=== PATIENT | male | born 1990 | race Hispanic/Latino ===

== ENCOUNTER 2021-05-06 10:42 | Emergency (ER) | payer OTHER ==
[~2021-05-06] VITALS: Ht 175.3 cm; Wt 82.4 kg
--- NOTE | 2021-05-06 12:15 | REP ---
INDICATION: trauma COMPARISON: None. TECHNIQUE: There are four views FINDINGS: There is no fracture or dislocation. Mineralization and joint spaces are normal. There are no calcifications or foreign bodies. IMPRESSION: Essentially negative left ankle. <Electronically signed by Daljit Benitez > 05/06/21 [id number]
[2021-05-06] MEDS ORDERED: IBUPROFEN 800 MG TAB PO ONE (12:30)
--- NOTE | 2021-05-06 12:54 | REP ---
INDICATION: TRAUMATIC PROXIMAL FOOT PAIN R/O FX TARSALS, METATARSALS. COMPARISON: None. TECHNIQUE: Four views FINDINGS: The joint spaces are symmetric and relatively well maintained. There is no evidence of acute fracture or destructive osseous lesion. IMPRESSION: Negative. <Electronically signed by Sharath Haines > 05/06/21 [id number]
[2021-05-06] MEDS ORDERED: ACETAMINOPHEN 500 MG TAB PO ONE (13:40)
[2021-05-06 13:47] VITALS: BP 127/80
== END 2021-05-06 14:10 | disposition home or self-care (01) ==
LOC: M ED 10:42
DX: M25.572 Pain in left ankle and joints of left foot (principal)

== ENCOUNTER 2021-12-25 21:56 | Emergency (ER) | payer OTHER ==
[~2021-12-25] VITALS: Ht 175.3 cm; Wt 79.5 kg
[2021-12-25 21:57] VITALS: BP 150/90
== END 2021-12-26 01:51 | disposition home or self-care (01) ==
LOC: M ED 21:56
DX: S60.131A Contusion of right middle finger with damage to nail, initial encounter (principal); X58.XXXA Exposure to other specified factors, initial encounter; Y92.89 Other specified places as the place of occurrence of the external cause; Y93.9 Activity, unspecified; Y99.1 Military activity; F17.290 Nicotine dependence, other tobacco product, uncomplicated

== ENCOUNTER 2022-01-21 12:20 | Emergency (ER) | payer OTHER ==
[~2022-01-21] VITALS: Ht 175.3 cm; Wt 81.8 kg
[2022-01-21 12:22] VITALS: BP 134/87
[2022-01-21] MEDS ORDERED: HYDR50TA70 PO (13:37)
== END 2022-01-21 14:08 | disposition home or self-care (01) ==
LOC: M ED 12:20
DX: G47.9 Sleep disorder, unspecified (principal); F17.290 Nicotine dependence, other tobacco product, uncomplicated

== ENCOUNTER 2022-02-03 11:00 | Emergency (ER) | payer OTHER ==
[~2022-02-03] VITALS: Ht 175.3 cm; Wt 81.8 kg
[2022-02-03 11:00] VITALS: BP 136/89
[~2022-02-03 11:00] MED LIST: HYDR50TA70 PO
[2022-02-03] MEDS ORDERED: MELO7.5T35 (11:20)
[2022-02-03] MEDS ORDERED: IBUPROFEN 800 MG TAB PO ONE (12:55)
[2022-02-03] MEDS ORDERED: IBUP80TA PO (13:06)
[2022-02-03] MEDS ORDERED: NORCO, ANEXSIA 5/325MG TABLET (HYDROcodone/ACETAMINOPHEN) PO ONE (13:35)
[2022-02-03] MEDS ORDERED: HYDR-3713 PO (13:36)
== END 2022-02-03 13:55 | disposition home or self-care (01) ==
LOC: M ED 11:00
DX: S46.912A Strain of unspecified muscle, fascia and tendon at shoulder and upper arm level, left arm, initial encounter (principal); X58.XXXA Exposure to other specified factors, initial encounter; Y92.89 Other specified places as the place of occurrence of the external cause; Y93.89 Activity, other specified; Y99.1 Military activity; M25.712 Osteophyte, left shoulder

== ENCOUNTER 2023-01-09 17:59 | Emergency (ER) | payer OTHER ==
[~2023-01-09] VITALS: Ht 175.3 cm; Wt 88.6 kg
[~2023-01-09 17:59] MED LIST changes: +HYDR-3713 PO; +IBUP80TA PO; +MELO7.5T35
[2023-01-09 18:00] VITALS: BP 130/86
[2023-01-09] MEDS ORDERED: CYCL-707 (18:12)
[2023-01-09] MEDS ORDERED: BACT800T5 PO (18:43)
== END 2023-01-09 19:02 | disposition home or self-care (01) ==
LOC: M ED 17:59
DX: L72.0 Epidermal cyst (principal); F17.290 Nicotine dependence, other tobacco product, uncomplicated; Z79.899 Other long term (current) drug therapy

== ENCOUNTER 2024-02-18 12:31 | Emergency (ER) | payer OTHER ==
[~2024-02-18] VITALS: Ht 175.3 cm; Wt 84.1 kg
[~2024-02-18 12:31] MED LIST changes: +BACT800T5 PO; +CYCL-707
[2024-02-18 18:40] VITALS: BP 147/97; TEMP 97; O2SAT 100
== END 2024-02-18 18:42 | disposition home or self-care (01) ==
LOC: M ED 12:31
DX: N62 Hypertrophy of breast (principal); N63.0 Unspecified lump in unspecified breast

== ENCOUNTER → 2025-06-30 | Outpatient (CLI) | payer OTHER | LOC: M OUTALCOH 09:16 | PROVIDERS: ATTEND Psychiatry & Neurology Psychiatry | DX: F17.200 Nicotine dependence, unspecified, uncomplicated (principal) ==

== ENCOUNTER 2025-07-25 16:00 | Outpatient (RCR) | payer OTHER | END 2025-07-28 | LOC: M OUTALCOH 16:00 | PROVIDERS: ATTEND Psychiatry & Neurology Psychiatry | DX: F17.200 Nicotine dependence, unspecified, uncomplicated (principal); F10.10 Alcohol abuse, uncomplicated ==

== ENCOUNTER 2025-08-10 09:28 | Emergency (ER) | payer OTHER ==
[~2025-08-10] VITALS: Ht 175.3 cm; Wt 86.4 kg
[2025-08-10 09:32] VITALS: BP 143/65; TEMP 97.6; O2SAT 97
[2025-08-10] MEDS ORDERED: PROC1AER16 PR (10:19)
== END 2025-08-10 10:27 | disposition home or self-care (01) ==
LOC: M ED 09:28
DX: K64.9 Unspecified hemorrhoids (principal)

== ENCOUNTER 2025-08-22 16:00 | Outpatient (RCR) | payer OTHER ==
[~2025-08-22 16:00] MED LIST changes: +PROC1AER16 PR
== END 2025-08-27 ==
LOC: M OUTALCOH 16:00
PROVIDERS: ATTEND Psychiatry & Neurology Psychiatry
DX: F17.200 Nicotine dependence, unspecified, uncomplicated (principal); F10.10 Alcohol abuse, uncomplicated